=== PATIENT | female | born 1940 | race Caucasian/White ===

== ENCOUNTER 2018-03-04 18:43 | Emergency (ER) | payer MEDICARE, BC ==
[~2018-03-04] VITALS: Ht 165.1 cm; Wt 60.0 kg
[2018-03-04] MEDS ORDERED: DIPH,PERTUSS(ACELL),TET VAC/PF 0.5 ML IM-VACC ONE ×2 (19:00→19:17)
[2018-03-04] MEDS ORDERED: NAPR-758 PO (19:16)
[2018-03-04] MEDS ORDERED: BACITRACIN ZINC OINT 500U/GM, 0.9 GM ONE (19:30)
[2018-03-04 19:36] LABS: BASOPHILS # (AUTO) 0.02 x10^3/uL (0-0.1); BASOPHILS % (AUTO) 0 % (0-1); EOSINOPHILS % (AUTO) 1 % (1-7); LYMPHOCYTES # (AUTO) 1.16 x10^3/uL (1-3.4); LYMPHOCYTES % (AUTO) 15 % (22-44); MD NO; MEAN CORPUSCULAR HEMOGLOBIN 31.4 pg (27.0-34.8); MEAN CORPUSCULAR HGB CONC 34.2 g/dL (32.4-35.8); MEAN CORPUSCULAR VOLUME 91.6 fL (80-100); MEAN PLATELET VOLUME 7.1 fL (7.4-10.4); MONOCYTES # (AUTO) 0.34 x10^3/uL (0.2-0.8); MONOCYTES % (AUTO) 5 % (2-9); NEUTROPHILS # (AUTO) 6.01 x10^3/uL (1.8-6.8); NEUTROPHILS % (AUTO) 79 % (42-75); PLATELET COUNT 182 x10^3/uL (130-400); RED BLOOD COUNT 4.04 x10^6/uL (3.82-5.3); RED CELL DISTRIBUTION WIDTH 13.4 % (9.6-15.2)
[2018-03-04 19:46] LABS: ALBUMIN 3.6 g/dL (3.4-5.0); ANION GAP 8 mmol/L (5-15); CALCIUM 8.6 mg/dL (8.5-10.1); CHLORIDE 107 mmol/L (98-107); CREATININE 0.89 mg/dL (0.55-1.02)
[2018-03-04 19:49] LABS: TROPONIN I < 0.015 ng/mL (0.000-0.045)
[2018-03-04 20:13] VITALS: BP 127/63
== END 2018-03-04 20:26 | disposition home or self-care (01) ==
LOC: ED 20:10
DX: S51.851A Open bite of right forearm, initial encounter (principal); R55 Syncope and collapse; W54.0XXA Bitten by dog, initial encounter; Y93.89 Activity, other specified; Y99.8 Other external cause status; Y92.89 Other specified places as the place of occurrence of the external cause
CPT/HCPCS: 36415; 80048; 82040; 84484; 85025; 90471; 90715; 93005; 99285

== ENCOUNTER → 2018-07-10 | Outpatient (CLI) | payer MEDICARE, BC ==
[~2018-07-10] MED LIST: NAPR-758 PO
== END | disposition home or self-care (01) ==
LOC: CFH 11:13
PROVIDERS: ATTEND Internal Medicine
DX: Z12.31 Encounter for screening mammogram for malignant neoplasm of breast (principal); Z13.820 Encounter for screening for osteoporosis; M81.0 Age-related osteoporosis without current pathological fracture; Z78.0 Asymptomatic menopausal state
CPT/HCPCS: 77080; 77067

== ENCOUNTER 2020-05-16 11:08 | Emergency (ER) | payer MEDICARE ==
[~2020-05-16] VITALS: Ht 149.9 cm; Wt 47.1 kg
[2020-05-16] MEDS ORDERED: SODIUM CHLORIDE 0.9% 1,000ML IVBOLUS ONE (12:00)
[2020-05-16] MEDS ORDERED: SODIUM CHLORIDE FLUSH 10ML SYR IVF ONE (12:00)
[2020-05-16 12:07] LABS: BASOPHILS # (AUTO) 0.02 x10^3/uL (0-0.1); BASOPHILS % (AUTO) 0 % (0-1); EOSINOPHILS # (AUTO) 0.14 x10^3/uL (0-0.4); EOSINOPHILS % (AUTO) 3 % (1-7); LYMPHOCYTES % (AUTO) 21 % (22-44); MD NO; MEAN CORPUSCULAR HEMOGLOBIN 31.9 pg (27.0-34.8); MEAN CORPUSCULAR HGB CONC 34.2 g/dL (32.4-35.8); MEAN CORPUSCULAR VOLUME 93.1 fL (80-100); MEAN PLATELET VOLUME 6.3 fL (7.4-10.4); MONOCYTES # (AUTO) 0.39 x10^3/uL (0.2-0.8); MONOCYTES % (AUTO) 7 % (2-9); NEUTROPHILS # (AUTO) 3.89 x10^3/uL (1.8-6.8); NEUTROPHILS % (AUTO) 69 % (42-75); PLATELET COUNT 151 x10^3/uL (130-400); RED CELL DISTRIBUTION WIDTH 13.1 % (9.6-15.2)
[2020-05-16 12:20] LABS: ALBUMIN 3.3 g/dL (3.4-5.0); ANION GAP 8 mmol/L (5-15); CALCIUM 7.8 mg/dL (8.5-10.1); CHLORIDE 111 mmol/L (98-107)
[2020-05-16 12:26] LABS: TROPONIN I < 0.015 ng/mL (0.000-0.045)
--- NOTE | 2020-05-16 12:55 | NUR ---
PT C/O ROOM BEING COLD. PT GIVEN WARM BLANKET AND HEATER HOSE PLACED ON PT. PT REPOSITIONED FOR COMFORT. WILL CONTINUE TO MONITOR.
--- NOTE | 2020-05-16 13:35 | NUR ---
PT GIVEN MEAL TRAY. PT ABLE TO GET UP TO BEDSIDE COMMODE TO VOID AND PROVIDE URINE SAMPLE. URINE WALKED TO LAB. VSS, SEE CHARTED. WILL CONTINUE TO MONITOR.
[2020-05-16 13:48] LABS: MICROSCOPIC AUTO
--- NOTE | 2020-05-16 14:45 | NUR ---
PT UP FOR RECHECK. ALL RESULTS BACK.
[2020-05-16 15:18] VITALS: BP 107/52
== END 2020-05-16 16:09 | disposition home or self-care (01) ==
LOC: ED 12:07
DX: E86.0 Dehydration (principal); R55 Syncope and collapse; R07.89 Other chest pain
CPT/HCPCS: 36415; 71045; 73610; 80048; 81001; 82040; 84484; 85025; 87086; 93005; 96360; 96361; 99285; J7030

== ENCOUNTER → 2020-09-02 | Outpatient (CLI) | payer MEDICARE | END | disposition home or self-care (01) | LOC: CFH 15:03 | PROVIDERS: ATTEND Internal Medicine Cardiovascular Disease | DX: R55 Syncope and collapse (principal) | CPT/HCPCS: 93306 ==

== ENCOUNTER 2020-10-14 12:50 | Inpatient (IN) | payer MEDICARE ==
[~2020-10-14] VITALS: Ht 149.9 cm; Wt 47.4 kg
--- NOTE | 2020-10-14 12:57 | NUR ---
PROVIDER AT BEDSIDE
[2020-10-14] MEDS ORDERED: SODIUM CHLORIDE 0.9% 1,000ML IVBOLUS ONE (13:30)
--- NOTE | 2020-10-14 13:43 | NUR ---
PT BIB EMS FROM HOME, WHERE SHE LIVES WITH HER DAUTHER AND SON IN [place], FOR FTT. FAMILY CALLED EMS BECAUSE THE PT HAS BEEN REFUSING TO EAT/DRINK AND REFUSING TO CARE FOR HERSELF. PT STATES "I AM JUST TIRED OF BEING SICK". EMS STATES THE FAMILY HAS ATTEMPTED TO HAVE HOME HEALTH COME TO [place] BUT PT REFUSING SERVICES. PT AOX4 ON ASSESSMENT WITH RECTAL TEMP OF 96.5. MONITORS CONNECTED. EKG COMPLETE. WARM BLANKETS PROVIDED. UA IN PROGRESS. CALL LIGHT W/IN REACH.
[2020-10-14 13:44] LABS: MICROSCOPIC INDICATED
[2020-10-14 13:51] LABS: MEAN PLATELET VOLUME 7.1 fL (7.4-10.4); PLATELET COUNT 145 x10^3/uL (130-400); RED BLOOD COUNT 4.31 x10^6/uL (3.82-5.3); RED CELL DISTRIBUTION WIDTH 13.4 % (9.6-15.2)
[2020-10-14 13:56] LABS: ALBUMIN 3.8 g/dL (3.4-5.0); ANION GAP 15 mmol/L (5-15); CALCIUM 8.8 mg/dL (8.5-10.1); CHLORIDE 105 mmol/L (98-107)
[2020-10-14 14:00] LABS: ALANINE AMINOTRANSFERASE 12 U/L (12-78); ALKALINE PHOSPHATASE 56 U/L (45-117); CREATININE 1.23 mg/dL (0.55-1.02); TOTAL PROTEIN 7.8 g/dL (6.4-8.2)
--- NOTE | 2020-10-14 14:01 | NUR ---
PT RESTING ON NATE. VSDilcia. PAMELA.
[2020-10-14 14:08] LABS: MD YES
[2020-10-14 14:10] LABS: BAND#(MANUAL) 0.89 x10^3/uL; BANDS%(MANUAL) 7 % (0-7); BASOS#(MANUAL) 0.13 x10^3/uL (0-0.1); BASOS% (MANUAL) 1 % (0-1); LYMPH#(MANUAL) 0.64 x10^3/uL (1-3.4); LYMPHS% (MANUAL) 5 % (22-44); METAMYELOCYTES# (MANUAL) 0.13 x10^3/uL (0-0); METAMYELOCYTES% (MANUAL) 1 % (0-1); MONOS#(MANUAL) 0.76 x10^3/uL (0.3-2.7); MONOS% (MANUAL) 6 % (2-9); REACTIVE LYMPHS # (MANUAL) 0.13 x10^3/uL (0-0); REACTIVE LYMPHS % (MANUAL) 1 % (0-0); SEGS% (MANUAL) 79 % (42-75)
[2020-10-14 14:11] LABS: <PLATELET ESTIMATE> ADEQUATE; <PLT MORPHOLOGY> NORMAL PLT MORPH; <RBC MORPHOLOGY> NORMAL
[2020-10-14] MEDS ORDERED: CEFTRIAXONE PMX 1GM/50ML 50 ML ONE (14:20)
--- NOTE | 2020-10-14 14:25 | NUR ---
LAB AT BEDSIDE FOR BLOOD CULTURES. IV ACCESS OBTAINED. SEPSIS FLOWSHEET IN PROGRESS.
[2020-10-14] MEDS ORDERED: CEFTRIAXONE PMX 1GM/50ML 50 ML IV ONE (14:30)
--- NOTE | 2020-10-14 14:33 | NUR ---
RECEIVED CALL FROM PTS DAUGHTER. UPDATED ON PLAN OF CARE. DISCUSSED ADMISSION TO [facility]. QUESTIONS ANSWERED.
--- NOTE | 2020-10-14 14:34 | NUR ---
PTS DAUGHTER LASHAWN PH: [phone]
--- NOTE | 2020-10-14 14:55 | NUR ---
ORDERED MEDICATIONS INFUSING
[2020-10-14] MEDS ORDERED: ONDANSETRON ODT 4 MG PO PRN (15:00)
[2020-10-14] MEDS ORDERED: ONDANSETRON 2MG/ML, 2ML IVPush PRN (15:00)
[2020-10-14] MEDS ORDERED: MELATONIN 5 MG TABLET PO PRN (15:00)
[2020-10-14] MEDS ORDERED: ACETAMINOPHEN 325 MG TABLET PO PRN (15:00)
--- NOTE | 2020-10-14 15:02 | NUR ---
PT RESTING ON NATE. VSS. NAD. WILL CONTINUE TO MONITOR
--- NOTE | 2020-10-14 15:26 | NUR ---
DR CMAPA AT BEDSIDE.
--- NOTE | 2020-10-14 15:27 | NUR ---
PT RESTING ON NATE. VSDilcia. PAMELA.
[2020-10-14] MEDS ORDERED: NS + 20MEQ KCL 1,000 ML IV ONE (15:56)
[2020-10-14] MEDS ORDERED: HEPARIN 5,000 UNITS/ML, 1ML ONE (15:57)
[2020-10-14] MEDS: NS + 20MEQ KCL 1,000 ML IV SCH (16:03)
[2020-10-14] MEDS: HEPARIN 5,000 UNITS/ML, 1ML SQ SCH ×2 (16:04→22:53)
[2020-10-14] MEDS ORDERED: SODIUM CHLORIDE 0.9%, 250ML IVBOLUS ONE (17:30)
--- NOTE | 2020-10-14 17:31 | NUR ---
TASK RN: SPOKE WITH MD ABOUT BP. SEE MAR FOR INTERVENTIONS. BP HAS IMPROVED
[2020-10-14 18:03] VITALS: BP 122/65
[2020-10-14 19:35] VITALS: BP 120/62
[2020-10-15 00:19] VITALS: BP 122/60
[2020-10-15] MEDS: NS + 20MEQ KCL 1,000 ML IV SCH ×2 (01:33→11:04)
[2020-10-15 05:24] LABS: BASOPHILS % (AUTO) 1 % (0-1); EOSINOPHILS % (AUTO) 0 % (1-7); LYMPHOCYTES % (AUTO) 23 % (22-44); MEAN CORPUSCULAR HEMOGLOBIN 32.9 pg (27.0-34.8); MEAN CORPUSCULAR HGB CONC 35.3 g/dL (32.4-35.8); MONOCYTES % (AUTO) 6 % (2-9); NEUTROPHILS % (AUTO) 70 % (42-75); PLATELET COUNT 148 x10^3/uL (130-400); RED BLOOD COUNT 3.59 x10^6/uL (3.82-5.3); RED CELL DISTRIBUTION WIDTH 13.2 % (9.6-15.2)
[2020-10-15 05:25] LABS: MD NO
[2020-10-15 05:35] LABS: ANION GAP 7 mmol/L (5-15); CHLORIDE 111 mmol/L (98-107)
[2020-10-15 05:36] LABS: CREATININE 0.64 mg/dL (0.55-1.02)
[2020-10-15] MEDS: HEPARIN 5,000 UNITS/ML, 1ML SQ SCH ×3 (06:11→23:09)
[2020-10-15] MEDS: SENNA/DOCUSATE TABLET PO SCH (08:36)
[2020-10-15 10:09] VITALS: BP 110/57
[2020-10-15] MEDS: CEFTRIAXONE PMX 1GM/50ML 50 ML IV SCH (13:51)
[2020-10-15 14:45] VITALS: BP 104/62
[2020-10-15 19:57] VITALS: BP 108/59
[2020-10-15] MEDS: MIRTAZAPINE 15 MG TABLET PO SCH (20:00)
[2020-10-16 02:03] VITALS: BP 107/62
[2020-10-16] MEDS: SENNA/DOCUSATE TABLET PO SCH ×2 (08:04→08:07)
[2020-10-16] MEDS: HEPARIN 5,000 UNITS/ML, 1ML SQ SCH ×3 (08:04→23:06)
[2020-10-16 09:36] VITALS: BP 106/63
[2020-10-16] MEDS: BUPROPION SR 150 MG TABLET PO SCH (13:01)
[2020-10-16] MEDS: CEFTRIAXONE PMX 1GM/50ML 50 ML IV SCH (13:40)
[2020-10-16 14:48] VITALS: BP 116/57
[2020-10-16 20:22] VITALS: BP 115/52
[2020-10-16] MEDS: MIRTAZAPINE 15 MG TABLET PO SCH (20:29)
[2020-10-17 02:17] VITALS: BP 113/58
[2020-10-17] MEDS: CEPHALEXIN 250 MG CAPSULE PO SCH ×4 (06:23→19:55)
[2020-10-17] MEDS: HEPARIN 5,000 UNITS/ML, 1ML SQ SCH ×2 (06:23→16:19)
[2020-10-17 07:00] VITALS: BP 123/64
[2020-10-17] MEDS: BUPROPION SR 150 MG TABLET PO SCH (07:34)
[2020-10-17] MEDS: SENNA/DOCUSATE TABLET PO SCH (07:34)
[2020-10-17 13:29] VITALS: BP 110/59
[2020-10-17 19:30] VITALS: BP 113/57
[2020-10-17] MEDS: MIRTAZAPINE 15 MG TABLET PO SCH (19:55)
[2020-10-18] MEDS: HEPARIN 5,000 UNITS/ML, 1ML SQ SCH ×3 (00:01→16:07)
[2020-10-18 02:55] VITALS: BP 125/60
[2020-10-18] MEDS: CEPHALEXIN 250 MG CAPSULE PO SCH ×4 (05:18→20:45)
[2020-10-18 06:38] VITALS: BP 117/60
[2020-10-18] MEDS: BUPROPION SR 150 MG TABLET PO SCH (09:25)
[2020-10-18] MEDS: SENNA/DOCUSATE TABLET PO SCH (09:25)
[2020-10-18 12:37] VITALS: BP 123/58
[2020-10-18 19:44] VITALS: BP 101/62
[2020-10-18] MEDS: MIRTAZAPINE 15 MG TABLET PO SCH (20:45)
[2020-10-19] MEDS: HEPARIN 5,000 UNITS/ML, 1ML SQ SCH ×3 (00:54→15:57)
[2020-10-19] MEDS: CEPHALEXIN 250 MG CAPSULE PO SCH ×4 (05:42→20:32)
[2020-10-19] MEDS: SENNA/DOCUSATE TABLET PO SCH (08:20)
[2020-10-19] MEDS: BUPROPION SR 150 MG TABLET PO SCH (08:20)
[2020-10-19 08:32] VITALS: BP 114/74
[2020-10-19 15:05] VITALS: BP 103/65
[2020-10-19 20:01] VITALS: BP 99/62
[2020-10-19] MEDS: MIRTAZAPINE 15 MG TABLET PO SCH (20:33)
[2020-10-20] MEDS: HEPARIN 5,000 UNITS/ML, 1ML SQ SCH ×3 (00:08→16:07)
[2020-10-20 00:57] VITALS: BP 119/73
[2020-10-20] MEDS: CEPHALEXIN 250 MG CAPSULE PO SCH ×5 (05:48→21:08)
[2020-10-20 06:18] VITALS: BP 107/68
[2020-10-20] MEDS: POLYETHYLENE GLYCOL 17 GM PACKET PO PRN (06:55)
[2020-10-20] MEDS: BUPROPION SR 150 MG TABLET PO SCH (08:40)
[2020-10-20] MEDS: SENNA/DOCUSATE TABLET PO SCH (08:41)
[2020-10-20 12:26] VITALS: BP 101/69
[2020-10-20 19:28] VITALS: BP 127/65
[2020-10-20] MEDS: MAGNESIUM HYDROXIDE 8%, 30ML UDC PO SCH ×2 (21:00→21:08)
[2020-10-20] MEDS: MIRTAZAPINE 15 MG TABLET PO SCH ×2 (21:00→21:08)
[2020-10-21 01:07] VITALS: BP 129/78
[2020-10-21] MEDS: CEPHALEXIN 250 MG CAPSULE PO SCH ×4 (05:51→20:33)
[2020-10-21] MEDS: HEPARIN 5,000 UNITS/ML, 1ML SQ SCH ×3 (05:51→20:33)
[2020-10-21 06:21] VITALS: BP 114/69
[2020-10-21] MEDS: MAGNESIUM HYDROXIDE 8%, 30ML UDC PO SCH ×2 (08:20→20:33)
[2020-10-21] MEDS: BUPROPION SR 150 MG TABLET PO SCH (08:20)
[2020-10-21] MEDS: SENNA/DOCUSATE TABLET PO SCH (08:20)
[2020-10-21 12:05] VITALS: BP 102/67
[2020-10-21 19:34] VITALS: BP 113/72
[2020-10-21] MEDS: MIRTAZAPINE 15 MG TABLET PO SCH (20:33)
[2020-10-22 00:52] VITALS: BP 129/82
[2020-10-22] MEDS: HEPARIN 5,000 UNITS/ML, 1ML SQ SCH ×4 (05:27→20:42)
[2020-10-22] MEDS: CEPHALEXIN 250 MG CAPSULE PO SCH ×4 (05:27→20:35)
[2020-10-22] MEDS: BUPROPION SR 150 MG TABLET PO SCH (08:14)
[2020-10-22] MEDS: MAGNESIUM HYDROXIDE 8%, 30ML UDC PO SCH ×2 (08:14→20:35)
[2020-10-22] MEDS: SENNA/DOCUSATE TABLET PO SCH (08:14)
[2020-10-22 08:39] VITALS: BP 115/77
[2020-10-22 13:19] VITALS: BP 119/79
[2020-10-22] MEDS: MIRTAZAPINE 15 MG TABLET PO SCH (20:35)
[2020-10-22 20:43] VITALS: BP 116/76
[2020-10-23 00:22] VITALS: BP 130/76
[2020-10-23] MEDS: CEPHALEXIN 250 MG CAPSULE PO SCH (05:28)
[2020-10-23] MEDS: HEPARIN 5,000 UNITS/ML, 1ML SQ SCH ×3 (05:28→20:06)
[2020-10-23 07:19] VITALS: BP 114/74
[2020-10-23] MEDS: BUPROPION SR 150 MG TABLET PO SCH (08:35)
[2020-10-23] MEDS: MAGNESIUM HYDROXIDE 8%, 30ML UDC PO SCH ×2 (08:35→20:05)
[2020-10-23] MEDS: SENNA/DOCUSATE TABLET PO SCH (08:35)
[2020-10-23 12:04] VITALS: BP 107/72
[2020-10-23 18:59] VITALS: BP 113/75
[2020-10-23] MEDS: MIRTAZAPINE 15 MG TABLET PO SCH (20:06)
[2020-10-24 01:25] VITALS: BP 119/70
[2020-10-24] MEDS: HEPARIN 5,000 UNITS/ML, 1ML SQ SCH ×3 (05:09→20:29)
[2020-10-24 06:54] VITALS: BP 115/78
[2020-10-24] MEDS ORDERED: POTASSIUM CHLORIDE 20 MEQ in SODIUM CHLORIDE 0.45% 1,000 ML IV SCH (07:00)
[2020-10-24] MEDS: SENNA/DOCUSATE TABLET PO SCH ×2 (09:00→09:23)
[2020-10-24] MEDS: MAGNESIUM HYDROXIDE 8%, 30ML UDC PO SCH ×2 (09:00→09:23)
[2020-10-24] MEDS: BUPROPION SR 150 MG TABLET PO SCH ×2 (09:00→09:23)
[2020-10-24 13:12] VITALS: BP 114/62
[2020-10-24] MEDS: POLYETHYLENE GLYCOL 17 GM PACKET PO PRN (13:42)
[2020-10-24] MEDS ORDERED: MAGNESIUM HYDROXIDE 8%, 30ML UDC PO PRN (15:30)
[2020-10-24 18:58] VITALS: BP 129/78
[2020-10-24] MEDS: MIRTAZAPINE 15 MG TABLET PO SCH (20:29)
[2020-10-25 01:19] VITALS: BP 111/74
[2020-10-25] MEDS: HEPARIN 5,000 UNITS/ML, 1ML SQ SCH ×2 (06:02→13:55)
[2020-10-25 07:18] VITALS: BP 120/80
[2020-10-25] MEDS: POLYETHYLENE GLYCOL 17 GM PACKET PO PRN (10:02)
[2020-10-25] MEDS: BUPROPION SR 150 MG TABLET PO SCH (10:03)
[2020-10-25] MEDS: SENNA/DOCUSATE TABLET PO SCH (10:03)
[2020-10-25 10:43] VITALS: BP 117/76
[2020-10-25 12:39] VITALS: BP 111/74
[2020-10-25 13:11] LABS: BASOPHILS % (AUTO) 1 % (0-1); EOSINOPHILS % (AUTO) 0 % (1-7); LYMPHOCYTES % (AUTO) 23 % (22-44); MEAN CORPUSCULAR HEMOGLOBIN 32.5 pg (27.0-34.8); MEAN CORPUSCULAR HGB CONC 34.7 g/dL (32.4-35.8); MEAN PLATELET VOLUME 6.5 fL (7.4-10.4); MONOCYTES % (AUTO) 6 % (2-9); NEUTROPHILS % (AUTO) 69 % (42-75); PLATELET COUNT 234 x10^3/uL (130-400); RED BLOOD COUNT 4.43 x10^6/uL (3.82-5.3); RED CELL DISTRIBUTION WIDTH 13.4 % (9.6-15.2)
[2020-10-25 13:13] LABS: MD NO
[2020-10-25 13:23] LABS: ALBUMIN 3.5 g/dL (3.4-5.0); ANION GAP 10 mmol/L (5-15); CHLORIDE 100 mmol/L (98-107)
[2020-10-25 13:28] LABS: ALANINE AMINOTRANSFERASE 32 U/L (12-78); ALKALINE PHOSPHATASE 62 U/L (45-117); BILIRUBIN,TOTAL 0.9 mg/dL (0.2-1.0); CREATININE 0.86 mg/dL (0.55-1.02); TOTAL PROTEIN 7.8 g/dL (6.4-8.2)
[2020-10-25] MEDS ORDERED: ONDANSETRON 2MG/ML, 2ML IVPush PRN (15:30)
[2020-10-25] MEDS ORDERED: LORazepam 2 MG/ML, 1ML IVPush PRN (15:30)
[2020-10-25] MEDS ORDERED: ATROPINE OPHTH SOLN 1%, 5ML PO PRN (15:30)
[2020-10-25] MEDS ORDERED: SCOPOLAMINE 1MG PATCH TD PRN (15:30)
[2020-10-25] MEDS ORDERED: SENNA/DOCUSATE TABLET PO PRN (15:30)
[2020-10-25] MEDS ORDERED: MORPHINE SULFATE 4 MG/ML, 1ML ONE (22:48)
[2020-10-25] MEDS: morphine SULFATE 10 MG/ML, 1ML IVPush PRN (22:51)
[2020-10-26] MEDS: BISACODYL 10 MG SUPP PR PRN (03:19)
[2020-10-27] MEDS: BISACODYL 10 MG SUPP PR PRN (22:27)
[2020-10-28] MEDS: LORazepam INTENSOL 2 MG/ML PO SCH ×3 (12:07→22:56)
[2020-10-28] MEDS: morphine SULFATE ORAL.CONC 20 MG/ML PO SCH ×2 (12:08→22:57)
[2020-10-29] MEDS: LORazepam INTENSOL 2 MG/ML PO SCH ×3 (09:44→22:47)
[2020-10-29] MEDS: morphine SULFATE 10 MG/ML, 1ML IVPush PRN ×2 (09:50→14:50)
[2020-10-29] MEDS: morphine SULFATE ORAL.CONC 20 MG/ML PO SCH ×2 (11:00→22:46)
[2020-10-30] MEDS: morphine SULFATE 10 MG/ML, 1ML IVPush PRN ×2 (03:50→12:28)
[2020-10-30] MEDS: LORazepam INTENSOL 2 MG/ML PO SCH ×3 (10:13→23:17)
[2020-10-30] MEDS: morphine SULFATE ORAL.CONC 20 MG/ML PO SCH ×2 (10:14→23:17)
[2020-10-30] MEDS ORDERED: SCOPOLAMINE PATCH, 1.5MG PATCH.TD72 TD PRN (12:00)
[2020-10-31] MEDS: LORazepam INTENSOL 2 MG/ML PO SCH ×3 (08:37→22:20)
[2020-10-31] MEDS: morphine SULFATE ORAL.CONC 20 MG/ML PO SCH ×2 (11:18→23:22)
[2020-11-01] MEDS: LORazepam INTENSOL 2 MG/ML PO SCH ×2 (08:18→16:44)
[2020-11-01] MEDS: morphine SULFATE ORAL.CONC 20 MG/ML PO SCH (11:15)
[2020-11-01] MEDS: morphine SULFATE 10 MG/ML, 1ML IVPush PRN (14:27)
== END 2020-11-02 00:21 | disposition expired | DRG 871 ==
LOC: ED 14:25 → EDIP 14:26 → ED 14:27 → SUATTDRO 14:30 → 3N 17:51 → 4NW 10-25 19:35
PROVIDERS: ADMIT Internal Medicine; ATTEND Internal Medicine
PROC: 0T9B70Z Drainage of Bladder with Drainage Device, Via Natural or Artificial Opening (ICD-10-PCS; principal; 2020-10-14)
DX: A41.9 Sepsis, unspecified organism (principal); N17.0 Acute kidney failure with tubular necrosis; E43 Unspecified severe protein-calorie malnutrition; G92 Toxic encephalopathy; I63.9 Cerebral infarction, unspecified; J96.01 Acute respiratory failure with hypoxia; G81.94 Hemiplegia, unspecified affecting left nondominant side; N30.00 Acute cystitis without hematuria; I46.9 Cardiac arrest, cause unspecified; B96.20 Unspecified Escherichia coli [E. coli] as the cause of diseases classified elsewhere; E86.0 Dehydration; F03.90 Unspecified dementia, unspecified severity, without behavioral disturbance, psychotic disturbance, mood disturbance, and anxiety; F32.9 Major depressive disorder, single episode, unspecified; R65.20 Severe sepsis without septic shock; Z51.5 Encounter for palliative care; M19.90 Unspecified osteoarthritis, unspecified site; Z68.21 Body mass index [BMI] 21.0-21.9, adult; Z74.01 Bed confinement status; Z87.440 Personal history of urinary (tract) infections
CPT/HCPCS: 36415; 71045; 80048; 80053; 81001; 83605; 84145; 85025; 86480; 87040; 87077; 87086; 87186; 93005; 96365; 99291; G0378; J0696; J1644; J3480; J2270; J7030; J7050